=== PATIENT | male | born 1975 | race Caucasian/White ===

== ENCOUNTER 2020-07-13 18:51 | Emergency (ER) | payer OTHER, SELFPAY ==
[2020-07-13 19:04] VITALS: BP 154/102; BP 156/98; PULSE 111; PULSE 98; RESP 16; TEMP 37.3; O2SAT 100; O2SAT 98; BMI 33.4
[2020-07-13] MEDS: Lidocaine HCl 2 % MPF 5 ML VIAL SUBCUT (19:45)
--- NOTE | 2020-07-13 19:59 | ED.WOUNDLAC ---
HPI - Wound/Laceration General Chief Complaint: Wound/Laceration Stated Complaint: HAND LAC Time Seen by Provider: 07/13/20 19:14 Source: patient Mode of arrival: ambulatory Limitations: no limitations History of Present Illness HPI narrative: Patient tells me he cut his right hand on a broken ceramic coffee cup. Tetanus is up to date Onset (ago): minute(s) Extremity Location: right: hand Place: home Patient tetanus UTD: Yes Context: accidental Associated symptoms: none Related Data Allergies Allergy/AdvReac Type Severity Reaction Status Date / Time No Known Allergies Allergy Verified 07/13/20 19:12 Review of Systems Review of Systems: Yes all other systems are reviewed and are negative Constitutional: Constitutional: Reports no additional constitutional complaints, Denies chills and Reports fever(s) Gastrointestinal: Gastrointestinal: Reports abdominal pain, Reports diarrhea, Reports nausea and Reports vomiting Musculoskeletal: Musculoskeletal: Reports no additional musculoskeletal complaints, Denies back pain, Denies arthralgias, Denies joint swelling, Denies limited range of motion, Denies numbness and Denies tingling Integumentary/Breasts: Skin/Breast: Reports system reviewed and no additional complaints, except as docu, Denies swelling, Denies erythema and Denies rash Comments: +laceration Neurologic: Reports system reviewed and no additional complaints, except as documented, Denies Abnormal speech present, Denies numbness, Denies Sensory deficit (Neuro), Denies tingling and Denies paresthesias PMFSH Past Medical History Attestation statement: The following information was validated with the patient. Source: old records reviewed and nursing notes reviewed Medical History (Updated 07/13/20 @ 19:49 by Cheyanne Pedersen NP) PTSD (post-traumatic stress disorder) Social History Social History Advance Directives: No Advance Directives Information Provided: No Physical Exam Vital Signs: Vital Signs: Last Vital Signs Temp 99.2 F 07/13/20 19:04 Pulse 111 H 07/13/20 19:04 Resp 16 07/13/20 19:04 BP 154/102 H 07/13/20 19:04 Pulse Ox 100 07/13/20 19:04 Body Mass Index 33.4 Const: General: cooperative, healthy appearing, comfortable and no acute distress Orientation/consciousness: patient oriented x3 Limitations: no limitations HENMT: Head: Yes normal to inspection Ears: hearing grossly normal bilaterally General nose exam: Normal external nose present Face and sinus: Yes normal facial exam Mouth: Normal oral and palatal mucosa present Eyes: General: appearance normal, both eyes and all related structures Neck: Neck: Yes normal visual inspection Chest: Chest palpation & inspection: normal inspection of the chest Resp: Effort & Inspection: normal respiratory effort Cardio: Rhythm: regular rhythm GI: Inspection: Yes normal to inspection Back/Spine/Pelvis: Thoracic/Lumbar Spine: thoracic and lumbar spine normal to inspection Skin: General skin exam: no rashes or lesions noted Neuro: General: patient oriented x3, no focal motor deficits and normal sensation to monofilament Cognition (Neuro): normal cognition Speech: No Abnormal speech present Gait exam (Neuro): Normal gait present Motor exam (neuro): 5/5 motor strength present throughout Sensory Exam: No Sensory deficit (Neuro) Extrem: Other: To the lateral aspect of the right hand there is a 5cm laceration with active bleeding. FROM of hand. Normal sensation. normal cap refill. General: Yes normal to inspection Course Course Course Narrative: See procedure note. Normal ROM. No paresthesias. Reviewed worrisome signs and symptoms of when to return to the emergency department. Comfortable with discharge home. Procedures Laceration Laceration 1: Site: upper extremity Side (If applicable): right Size (cm): 5 Description: linear Depth: simple, single layer Pre-repair: wound explored and irrigated extensively Skin layer closed with: nylon Size (cm): 5-0 Number of sutures: 5 Discharge Plan Discharge Clinical Impression: Laceration Patient Disposition: Home, Self-Care Instructions: Laceration (ED) Additional Instructions: Sutures out in 7 days wash with soap and water every day Referrals: Socrates Leonard MD [Primary Care Provider] - 2 days Interventions: ED Discharge Assessment Last Done: 07/13/20 19:56 Discharge Date/Time: 07/13/20 19:56
== END 2020-07-13 19:56 | disposition home or self-care (01) ==
PROVIDERS: Emergency Provider Emergency Medicine Emergency Medical Services; PCP Internal Medicine
DX: S61.411A Laceration without foreign body of right hand, initial encounter (principal); M79.641 Pain in right hand; W26.9XXA Contact with unspecified sharp object(s), initial encounter; Y93.9 Activity, unspecified; Y92.9 Unspecified place or not applicable; Y99.9 Unspecified external cause status
CPT/HCPCS: 12002; 99283; 99284

== ENCOUNTER 2024-03-06 09:04 | Day surgery (SDC) | payer OTHER, SELFPAY ==
[2024-03-02 13:44] VITALS: BMI 33.0
--- NOTE | 2024-03-05 12:11 | P.CONAN_ITS ---
Documented by User: Ethel Montalvo NP 03/05/24 12:12 HPI - Anesthesia Eval Consult details Narrative: 48yo M for Colonoscopy [facility] Past Medical History Medical History EKG abnormalities Hyperlipidemia Migraines Anxiety PTSD (post-traumatic stress disorder) Surgical History Surgical History Hx of LASIK Hx of cholecystectomy Social History Social History Are you a primary geriatric care manager to a significant other at home: No Do you presently have visiting nurse or other home services: No Patient Tobacco Use Status: Never used Tobacco Substance Use Frequency: Occasionally Have you been hit, kicked, punched, or otherwise hurt by someone within the past year? If so, by whom?: No Are you DNR?: No Advance Directives: No Advance Directives Information Provided: Yes Recently lost weight without trying: No Nutrition Risks: No Nutritional Risk Meds Allergies Allergy/AdvReac Type Severity Reaction Status Date / Time No Known Allergies Allergy Verified 03/06/24 09:58 Home Medications ?Medication ?Instructions ?Recorded ?Confirmed ?Last Taken ?Type lorazepam 0.5 mg tablet 0.5 mg PO DAILY PRN Anxiety 03/02/24 03/02/24 Unknown History sertraline 50 mg tablet 50 mg PO DAILY 03/02/24 03/02/24 Unknown History Exam Height,Weight and Vital Signs: Height 5 ft 8 in Weight 98.43 kg Assessment and Plan Assessment Anesthesia Assessment: Chart Reviewed Documented by User: Maria Dolores Peterson MD 03/06/24 12:18 [facility] Past Medical History Medical History EKG abnormalities Hyperlipidemia Migraines Anxiety PTSD (post-traumatic stress disorder) Surgical History Surgical History Hx of LASIK Hx of cholecystectomy History of Problems with Anesthesia: No Social History Social History Are you a primary geriatric care manager to a significant other at home: No Do you presently have visiting nurse or other home services: No Patient Tobacco Use Status: Never used Tobacco Substance Use Frequency: Occasionally Have you been hit, kicked, punched, or otherwise hurt by someone within the past year? If so, by whom?: No Are you DNR?: No Advance Directives: No Advance Directives Information Provided: Yes Recently lost weight without trying: No Nutrition Risks: No Nutritional Risk Meds Allergies Allergy/AdvReac Type Severity Reaction Status Date / Time No Known Allergies Allergy Verified 03/06/24 09:58 Home Medications ?Medication ?Instructions ?Recorded ?Confirmed ?Last Taken ?Type lorazepam 0.5 mg tablet 0.5 mg PO DAILY PRN Anxiety 03/02/24 03/02/24 Unknown History sertraline 50 mg tablet 50 mg PO DAILY 03/02/24 03/02/24 Unknown History Exam Airway Mallampati Class: III TM Dist: >3cm Neck ROM: Full Loose/Missing/Broken Teeth: No Heart: RRR Lungs: CTA Assessment and Plan Assessment Anesthesia Assessment: Anesthesia Plan Discussed Final Anesthetic Review History of Problems with Anesthesia: No NPO: Yes ASA Class: II Final Preanesthetic Review: Meds/Allgs Chart Reviewed, Consent Obtained/Reviewed and Anes Risks/Benef Reviewed Patient Risk: Low Procedure Risk: Low Anesthetic Plan Anesthetic Plan: MAC: Disposition: Standard PACU
--- OUTSIDE RECORDS SUMMARY | 2024-03-06 09:07 | XMS_ITS | Continuity of Care Document ---
Author Organization [facility] Address [address] [place] [address]- Care Team Providers Care Manager Online Name Role Phone Iza Gallardo MD Primary Care Physician [phone] Encounter [facility] Date(s): 09/20/22 - 10/20/22 [facility] [address] [place] [id number] Allergies, Adverse Reactions, Alerts No Known Allergies Problem List Condition Confirmation Course Effective Dates Status H ealth Status Informant Acute and chronic cholecystitis Confirmed Active Social History Social History Type Response Smoking Status Never smoker entered on: 06/23/15 Sex Patient Care team information Care Team Personnel Name: Iza Gallardo MD Position: S Physician (General Medicine) Member Role: PCP Address: Address: [address] [place] [address]- Care Team Related Persons Name: ALLA PINEDA Address: home [address] [place] [address]
--- OUTSIDE RECORDS SUMMARY | 2024-03-06 09:07 | XMS_ITS ---
Author Organization [facility] Address [address] [place] [address] Care Team Providers Care Crew Director Name Role Phone JOHN WELSH M.D. Primary Care Provider Dhruv Estrada Jr REASON FOR VISIT screening Encounters Encounter Location Date Provider Diagnosis [facility] Outpatient [address] [place] [phone] 03/06/2024 Dhruv Barber Jr PLAN OF TREATMENT Next Appt Details Provider Name:Dhruv pina Jr, 03/06/2024 11:00:00 AM, [address] [place], [place], [phone],
--- OUTSIDE RECORDS SUMMARY | 2024-03-06 09:07 | XMS_ITS | Continuity of Care Document ---
Author Organization [facility] Address [address] [place] [address]- Care Team Providers Care Spout Liner Name Role Phone Iza Gallardo MD Primary Care Physician Encounter [facility] [place] Date(s): 10/11/22 - 11/10/22 [facility] [address] [place] [id number]- Attending Physician: Timur Payne Admitting Physician: Admamerica Ar8 Referring Physician: Admtr Ar8 Allergies, Adverse Reactions, Alerts No Known Allergies Problem List Condition Confirmation Course Effective Dates Status H ealth Status Informant Acute and chronic cholecystitis Confirmed Active Social History Social History Type Response Smoking Status Never smoker entered on: 06/23/15 Sex Patient Care team information Care Team Personnel Name: Iza Gallardo MD Position: S Physician (General Medicine) Member Role: PCP Address: Address: [address] [place] [phone]- Care Team Related Persons Name: ALLA PINEDA Address: home [address] [place] [address]
--- OUTSIDE RECORDS SUMMARY | 2024-03-06 09:07 | XMS_ITS ---
Author Organization [facility] Address [address] [place] [address] Care Team Providers Care Classics Teacher Name Role Phone JOHN WELSH M.D. Primary Care Provider Dhruv Estrada Jr Unavailable ALLERGIES No Known Allergies REASON FOR VISIT Patient presents today for a colon screening MEDICATIONS Medication SIG (Take, Route, Frequency, Duration) Notes Start Date End Date Status MiraLax (colon prep) 17 GM/SCOOP mixed with Gatorade or Crystal Light Orally begin at 5:00 p.m. the day before the procedure for 1 day 01/12/2024 Active Sertraline HCl 50 MG Oral for 60 Active LORazepam 0.5 MG Oral for 30 A ctive SOCIAL HISTORY Tobacco Use: Social History Observation Description Date Details (start date - stop date) Never Smoker NA - NA Sex Assigned At : Social History Observation Description Sex Assigned At Unknown Tobacco Use/Smoking Question Answer Notes Patient is a nonsmoker Alcohol Screen Question Answer Notes Did you have a drink contain ing alcohol in the past year? Yes How often did you have a dri nk containing alcohol in the past year? 2 to 4 times a month (2 points) How many drinks did you have on a typical day when you were drinking in the past year? 3 or 4 drinks (1 point) How often did you have 6 or more drinks on one occasion in the past year? Never (0 point) Points 3 Interpretation Negative PROBLEMS Problem Type ICD Code Onset Dates Problem Status W/U Status Risk SNOMED Code Notes Problem Colon cancer screening (Z12.11) Active confirmed 572355502 Problem Encounter for other preprocedural examination (Z01.818) Active confirmed 452447645 VITAL SIGNS BMI 32.99 kg/m2 01/12/2024 Blood pressure systolic 00 mm Hg 01/12/20 24 Blood pressure diastolic 00 mm Hg 024 Height 5 ft 8 in in 01/12/2024 Weight 217 lbs 01/12/2024 Encounters Encounter Location Date Provider Diagnosis [facility] [address] [place] [address] 01/12/2024 Dhruv Barber Jr Colon cancer screening Z12.11 and Encounter for other preprocedural examination Z01.818 ASSESSMENTS Encounter Date Diagnosis Assessment Notes Treatment Notes Treatment Clinical Notes 01/12/2024 Colon cancer screening (ICD-10 - Z12.11) Colonoscopy material was printed 01/12/2024 Encounter for other preprocedural examination (ICD-10 - Z01.818) PLAN OF TREATMENT Medication Medication Name Sig Start Date Stop Date Notes MiraLax (colon prep) 17 GM/SCOOP mixed with Gatorade or Crystal Light Orally begin at 5:00 p.m. the day before the procedure for 1 day 01/12/2024 Treatment Notes Assessment Notes Colon cancer screening Colonoscopy mater ial was printed Future Test Test Name Order Date COLONOSCOPY 01/12/2024 Next Appt Details Follow Up: 1 Year, Reason: Provider Name:Dhruv pina Jr, 03/06/2024 11:00:00 AM, [address] [place] [address] , [place], [place], [phone], Progress Notes * Examination Category Sub-Category Detail Notes General Examination GENERAL APPEARANCE: in no ac [place] distress HEAD: normocephalic EYES: sclera non-icteric NECK/THYROID: no lymphadenopathy HEART: S1, S2 normal, no mu rmurs CHEST: normal shape and exp ansion LUNGS: clear to auscultatio n bilaterally ABDOMEN: soft, nontender, non distended, bowel sounds present, no organomegaly SKIN: anicteric EXTREMITIES: no clubbing, cyanosi s, or edema PSYCH: cognitive function i ntact ORAL CAVITY: mucosa moist
--- OUTSIDE RECORDS SUMMARY | 2024-03-06 09:07 | XMS_ITS | Patient Health Record ---
Author Organization [facility] Address [address] [place] [address] Care Team Providers Care Raw Stock Dyeing Machine Tender Name Role Phone ANITHA Garza, JOHN Primary Care Provider Unavailcordelia ble Dhruv Barber Jr Unavailable [phone] ALLERGIES No Known Allergies REASON FOR REFERRAL Referring Provider First Name JOHN Referring Provider Last Name ANITHA Referred Organization [facility] Referred Provider Dhruv Barber Jr Referred Address [address] [facility],[place], [place],[address], Referred Provider Specialty Gastroentero logy Referral Priority Routine MEDICATIONS Medication SIG (Take, Route, Frequency, Duration) [...] Problem Colon cancer screening (Z12.11) Active confirmed [id number] Problem Encounter for other preprocedural examination (Z01.818) Active confirmed 721208342 VITAL SIGNS Blood pressure diastolic 00 mm Hg 01/12/2024 Height 5 ft 8 in in 01/12/2024 Blood pressure systolic 00 mm Hg 01/12/2024 Weight 217 lbs 01/12/2024 BMI 32.99 kg/m2 01/12/2024 Encounters Encounter Location Date Provider Diagnosis [facility] [place] [address] [place], [place] [phone] 03/06/2024 Dhruv Barber Jr [facility] [address] [place] [address] 01/12/2024 Dhruv Barber Jr Colon cancer screening Z12.11 and Encounter for other preprocedural examination Z01.818 ASSESSMENTS Encounter Date Diagnosis Assessment Notes Treatment Notes Treatment Clinical Notes 01/12/2024 Colon cancer screening (ICD-10 - Z12.11) Colonoscopy material was printed 01/12/2024 Encounter for other preprocedural examination (ICD-10 - Z01.818) PLAN OF TREATMENT Future Test Test Name Order Date COLONOSCOPY 01/12/2024 Next Appt Details Provider Name:Dhruv pina Jr, 03/06/2024 11:00:00 AM, [address] [facility] [place] [facility] , [place], [place], [phone], Insurance Providers Payer Name Payer Address Payer Phone Subscriber Number Group Number Insured Name Patient Relationship to Insured Coverage Start Date Coverage End Date [facility] [employer] [address] [place] [address] [id number] JOSE GUADALUPE PINEDA Self - patient is the insured MEDICAL (GENERAL) HISTORY Medical History History ICD Code Benign early repolarization on EKG, nega tive echo and stress test Anxiety/PTSD Migraine headaches Hyperlipidemia, diet controlled Surgical History Surgery Date(Month/Year) cholecystectomy 2014
--- OUTSIDE RECORDS SUMMARY | 2024-03-06 09:07 | XMS_ITS | Continuity of Care Document ---
Author Organization [facility] Address [address] [place] [address]- Care Team Providers Care Baccarat Dealer Name Role Phone Iza Gallardo MD Primary Care Physician Encounter [facility] [id number] Date(s): 09/20/22 - 11/10/22 [facility] [address] [place] [address]- Attending Physician: Belem Mars MD Admitting Physician: Belem Mars MD Referring Physician: Erlin Gonzalez Allergies, Adverse Reactions, Alerts No Known Allergies Problem List Condition Confirmation Course Effective Dates Status H ealth Status Informant Acute and chronic cholecystitis Confirmed Active Social History Social History Type Response Smoking Status Never smoker entered on: 06/23/15 Sex Patient Care team information Care Team Personnel Name: Iza Gallardo MD Position: [facility] Physician (General Medicine) Member Role: PCP Address: Address: [address] [place] [address]- Care Team Related Persons Name: ALLA PINEDA Address: [address] [place] [address]
[2024-03-06 09:56] VITALS: BMI 33.4
[2024-03-06] MEDS: Lactated Ringers 1,000 ML 100 ML IVCONT (10:02)
[2024-03-06 10:19] VITALS: BP 153/97; PULSE 102; RESP 18; TEMP 36.6; O2SAT 100
--- NOTE | 2024-03-06 11:35 | P.HPSUR_ITS ---
Pre-Procedural Eval Section A - 24 Hr Update-Section A only Date of Service: 03/06/24 Section B - Complete if H&P > 30 days Chief Complaint: Encounter for screening for malignant neoplasm of Details of Present Illness: see H&P no changes Relevant Family History (Specify if Yes): No Relevant Social History: None Present Medications: see Short Stay Collaborative assessment Medical History: No relevant PMH History of Previous Operations: No relevant previous surgery Allergies: Allergies Allergy/AdvReac Type Severity Reaction Status Date / Time No Known Allergies Allergy Verified 03/06/24 09:58 Review of Systems Sugical H&P ROS: Negative: Constitution, Cardiovascular, Respiratory, Neurological, Psychiatric, Hem-Onc, Allergic/Immunologic, Gastrointestinal, Genitourinary, Musculoskeletal, Integumentary, Endocrine and Eyes/Ears/No se/Throat Exam Surgical H&P Exam: Normal: HEENT, Normal: Heart, Normal: Lungs, Normal: Extremities, Normal: Abdomen, Normal: Skin and Normal: Neurological Plan Diagnosis/Plan: Unchanged I have reviewed the history and physical and performed a pertinent physical examination on my patient. No changes have occurred unless specified. Time Spent With Patient Time: Total time managing care of this patient today ____ minutes.
[2024-03-06 12:34] VITALS: BP 121/83; PULSE 82; RESP 18; TEMP 36.3; O2SAT 97
[2024-03-06 12:49] VITALS: BP 133/88; PULSE 70; RESP 18; TEMP 36.3; O2SAT 97
--- NOTE | 2024-03-06 13:36 | OP_ITS ---
DATE OF SERVICE: 03/06/2024 SURGEON: Dhruv Barber MD INDICATIONS: Colon cancer screening. PREOPERATIVE DIAGNOSIS: POSTOPERATIVE DIAGNOSIS: PROCEDURE PERFORMED: Colonoscopy to the terminal ileum. ESTIMATED BLOOD LOSS: COMPLICATIONS: ANESTHESIA: ASSISTANTS: SPECIMENS: MEDICATIONS: Monitored anesthesia care. DESCRIPTION OF PROCEDURE: A history and physical was performed. The risks and benefits of the procedure were explained to the patient, and informed consent was obtained. The patient was placed in the left lateral decubitus position. The digital rectal examination was performed and was found to be normal. The Olympus video colonoscope was introduced in the rectum and advanced to the cecum. The cecum was identified by transillumination, palpation, and identification of the ileocecal valve. Examination was performed. The scope was removed. He tolerated the procedure well and was returned to the recovery area in stable condition. FINDINGS: The terminal ileum was examined and appeared normal. The visualized colonic mucosa was normal. The quality of the prep was good. No polyps were identified. Retroflexed examination showed small internal hemorrhoids. IMPRESSION: Normal colonoscopy. RECOMMENDATION: 1. Followup as needed. 2. Repeat colonoscopy is recommended in 10 years for average-risk individuals. MD ALBERT Luque/ZACARIAS / [id number]
== END 2024-03-06 13:30 | disposition home or self-care (01) ==
PROVIDERS: PCP Family Medicine; Visit Provider Internal Medicine Gastroenterology
PROC: 0DJD8ZZ Inspection of Lower Intestinal Tract, Via Natural or Artificial Opening Endoscopic (ICD-10-PCS; CPT 45378; principal; 2024-03-06 11:00)
DX: Z12.11 Encounter for screening for malignant neoplasm of colon (principal); K64.8 Other hemorrhoids; E78.5 Hyperlipidemia, unspecified; F41.9 Anxiety disorder, unspecified; Z79.899 Other long term (current) drug therapy
CPT/HCPCS: 45378; J2250; J2704